=== PATIENT | female | born 1995 | race Caucasian/White ===

== ENCOUNTER 2018-10-15 16:37 | Emergency (ER) | payer OTHER ==
[~2018-10-15] VITALS: Ht 160 cm; Wt 55.6 kg
[2018-10-15 18:50] LABS: BASO # 0.1 10^3/uL (0.0-0.2); BASO % 0.6 % (0.0-1.0); EOS # 0.1 10^3/uL (0.0-0.50); EOS % 1.1 % (0.0-3.0); HEMATOCRIT 37.3 % (36.0-47.0); HEMOGLOBIN 12.6 g/dl (12.0-15.5); LYMPH # 3.7 10^3/uL (1.5-6.5); LYMPH % 37.3 % (24.0-44.0); MEAN CORPUSCULAR HEMOGLOBIN 31.9 pg (27.0-33.0); MEAN CORPUSCULAR HGB CONC 33.8 g/dl (32.0-36.5); MEAN CORPUSCULAR VOLUME 94.4 fl (80.0-96.0); MONO # 0.7 10^3/uL (0.0-0.8); MONO % 7.3 % (0.0-5.0); NEUTROPHILS # 5.3 10^3/uL (1.8-7.7); NEUTROPHILS % 53.4 % (36.0-66.0); PLATELET COUNT, AUTOMATED 368 10^3/uL (150-450); RED BLOOD COUNT 3.95 10^6/uL (4.00-5.40); WHITE BLOOD COUNT 9.9 10^3/uL (4.0-10.0)
[2018-10-15 19:36] LABS: BLOOD UREA NITROGEN 9 MG/DL (7-18); CALCIUM LEVEL 9.3 MG/DL (8.5-10.1); CARBON DIOXIDE LEVEL 26 MEQ/L (21-32); CHLORIDE LEVEL 107 MEQ/L (98-107); CREATININE FOR GFR 0.74 MG/DL (0.55-1.30); GLOMERULAR FILTRATION RATE > 60.0 (>60); GLUCOSE, FASTING 87 MG/DL (70-100); HCG, SERUM QUANTITATIVE 1950 MIU/ML; POTASSIUM SERUM 4.3 MEQ/L (3.5-5.1); SODIUM LEVEL 139 MEQ/L (136-145)
[2018-10-15] MEDS ORDERED: ACETAMINOPHEN TAB 650MG DOSE (2X325MG) PO ONE (20:30)
[2018-10-15 22:20] LABS: CHLAMYDIA DNA AMPLIFICATION NEGATIVE (NEGATIVE); GC DNA AMPLIFICATION NEGATIVE (NEGATIVE)
--- NOTE | 2018-10-15 22:55 | REPVR ---
EXAM: US First Trimester, Transabdominal EXAM DATE/TIME: 10/15/2018 9:42 PM CLINICAL HISTORY: 22 years old, female; Signs and symptoms; Lmp or gestational age (in weeks): Lmp 08/18/18; Antepartum complications; Bleeding; ; Additional info: Vag bleeding TECHNIQUE: Imaging protocol: Real-time transabdominal obstetrical ultrasound of the maternal pelvis and a first trimester , less than 14 weeks 0 days, with image documentation. COMPARISON: No relevant prior studies available. FINDINGS: Uterus measures 9.1 x 4.0 x 5.9 cm. Single intrauterine gestational sac is seen with mean diameter of 10.2 mm corresponding to 5 weeks 5 days of . No yolk sac is seen. No pole is identified. Right ovary measures 2.8 x 2.2 x 2.1 cm. Normal vascular flow is seen. Cyst in the right ovary measuring 2.0 x 1.0 x 1.3 cm. Left ovary measures 4.4 x 2.2 x 3.6 cm. Normal vascular flow is seen in the left ovary. Cyst is seen in the left ovary measuring 3.2 x 1.8 x 2.3 cm. Small amount of free fluid in the posterior cul-de-sac. IMPRESSION: Single intrauterine gestational sac is seen with mean diameter of 10.2 mm corresponding to 5 weeks 5 days of . No yolk sac is seen. No pole is identified. Findings may represent normal early versus blighted ovum, followup is recommended. Bilateral ovarian cysts. Small free fluid. Electronically signed by: Aleyda Antony On 10/15/2018 22:54:42 PM
[2018-10-15 23:16] VITALS: BP 122/68
== END 2018-10-15 23:17 | disposition home or self-care (01) ==
LOC: M ED 16:37
DX: O20.0 Threatened abortion (principal); O34.81 Maternal care for other abnormalities of pelvic organs, first trimester; Z3A.01 Less than 8 weeks gestation of pregnancy

== ENCOUNTER 2019-07-23 10:35 | Emergency (ER) | payer OTHER ==
[~2019-07-23] VITALS: Ht 162.6 cm; Wt 56.5 kg
[2019-07-23] MEDS ORDERED: MIRE1IUD IU (10:39)
[2019-07-23] MEDS ORDERED: ALBUTEROL SULFATE 2.5 MG/0.5 ML INH NEB SOLN NEB ONE (11:15)
--- NOTE | 2019-07-23 11:49 | REP ---
CHEST, TWO VIEWS: There is no evidence of acute infiltrate. No pleural effusion is seen. The heart is normal in size. The mediastinal silhouette is unremarkable. The visualized osseous structures are intact. IMPRESSION: No acute pulmonary disease. Electronically Signed by Yassine Almanzar MD 07/23/2019 05:36 P
[2019-07-23] MEDS ORDERED: VENTAER INH (12:03)
[2019-07-23 12:06] VITALS: BP 110/61
--- NOTE | 2019-07-23 18:22 | ECGEPIP ---
[facility] - ED Test Date: 2019-07-23 Pat Name: ELIZABETH MARQUIS Department: Room: - Gender: Female Manager Property: juvencio : 1995 Requested By: ANA ESPINAL PA-C. Order Number: [id number] Reading MD: Lakshmi Pappas Measurements Intervals [place] Rate: 70 P: 35 ND: 124 QRS: 83 QRSD: 89 T: 52 QT: 390 QTc: 421 Interpretive Statements SINUS RHYTHM WITH SINUS ARRHYTHMIA NO PRIOR Electronically Signed on 07-23-2019 18:22:36 EST by Lakshmi Pappas
== END 2019-07-23 12:13 | disposition home or self-care (01) ==
LOC: M ED 10:35
DX: R06.02 Shortness of breath (principal); J45.909 Unspecified asthma, uncomplicated; F41.9 Anxiety disorder, unspecified; Z97.5 Presence of (intrauterine) contraceptive device

== ENCOUNTER 2020-02-16 13:00 | Emergency (ER) | payer OTHER ==
[~2020-02-16 13:00] MED LIST: MIRE1IUD IU; VENTAER INH
== END 2020-02-16 14:00 | disposition home or self-care (01) ==
LOC: M ED 13:00
DX: Z11.59 Encounter for screening for other viral diseases (principal); R50.9 Fever, unspecified; F41.9 Anxiety disorder, unspecified

== ENCOUNTER 2021-03-02 17:54 | Outpatient (CLI) | payer OTHER ==
[~2021-03-02] VITALS: Ht 162.6 cm; Wt 77.7 kg
--- NOTE | 2021-03-02 19:46 | IPNPDOC ---
Obstetrical Progress Note Date of Service Mar 02, 2021 Subjective 25yo at 38w6d presents to triage for decreased movement. States she hasn't felt the baby move as much today and was concerned. She also noted occasional feeling of leaking - states it is a small amount of fluid that she noted on Sunday, and has been occurring intermittently since then. Denies any leaking today. She is s/p membrane sweep last week during her visit, and is also s/p intercourse multiple times in the past week. Denies any large gush of fluid or vaginal bleeding. +GFM shortly after being placed on monitor Objective [facility] BP 128/77 HR 93 Resp 16 Temp 97.8 Assessment Heart Rate (FHR): 130 Variability: Moderate Accelerations: Positive Decelerations: None Heart Rate Tracing: Category I Tocometer Contractions: Yes Frequency: irregular, every 3-7 min. Sterile Vaginal Examination Dilation: 2cm Effacement (%): 50% Station: -2 Cervical Consistency: Soft Cervical Position: Middle Postion/Presentation: Cephalic presentation (on US. MVP 4cm) Assessment and Plan Status: Reassuring Additional Comments 25yo at 38w6d presents to triage with decreased FM. NST reactive and pt reports improvement in activity since arriving. US performed with baby noted to be cephalic with normal fluid. MVP 4cm. Pt requesting cervical exam, SVE /-2. Pt states she has follow up visit scheduled for tomorrow. BEHZAD MADISON M.D. Mar 02, 2021 19:46
== END 2021-03-02 19:20 | disposition home or self-care (01) ==
LOC: M LDO 17:54
PROVIDERS: ATTEND Obstetrics & Gynecology
DX: O36.8130 Decreased fetal movements, third trimester, not applicable or unspecified (principal); Z3A.38 38 weeks gestation of pregnancy
CPT/HCPCS: 59025; 76815; G0378; G0463

== ENCOUNTER 2021-03-07 16:03 | Outpatient (CLI) | payer OTHER ==
[~2021-03-07] VITALS: Ht 162.6 cm; Wt 77.3 kg
[2021-03-07 16:16] VITALS: BP 137/85
[2021-03-07] MEDS ORDERED: PRENTAB9 PO (16:26)
== END 2021-03-07 17:22 | disposition home or self-care (01) ==
LOC: M LDO 16:03
PROVIDERS: ATTEND Advanced Practice Midwife
DX: O47.1 False labor at or after 37 completed weeks of gestation (principal); Z3A.39 39 weeks gestation of pregnancy
CPT/HCPCS: 59025; G0378; G0463

== ENCOUNTER 2021-03-11 03:44 | Inpatient (IN) | payer OTHER ==
[~2021-03-11] VITALS: Ht 162.6 cm; Wt 78.3 kg
[2021-03-11] VITALS (34 sets, daily range): BP systolic 101–142; BP diastolic 51–79
[~2021-03-11 03:44] MED LIST changes: +PRENTAB9 PO
[2021-03-11] MEDS ORDERED: METHYLERGONOVINE MALEATE 0.2 MG/ML VIAL (J2210) IM PRN (04:30)
[2021-03-11] MEDS ORDERED: OXYTOCIN DRIP 30 UNITS in IV 1 EA IV SCH (04:30)
[2021-03-11] MEDS: LR 1,000 ML IV SCH ×4 (04:30→12:22)
[2021-03-11] MEDS ORDERED: TRANEXAMIC ACID INJection 1,000 MG in NS 100 ML IV PRN (04:30)
[2021-03-11] MEDS ORDERED: OXYTOCIN INJ 10 UNITS/ML VIAL (J2590) IV PRN (04:30)
[2021-03-11] MEDS ORDERED: CARBOPROST TROMETHAMINE 250 MCG/ML AMP IM PRN (04:30)
[2021-03-11] MEDS ORDERED: LIDOCAINE 1% MDV 20ML VIAL INFIL PRN (04:30)
[2021-03-11] MEDS ORDERED: OXYTOCIN DRIP 30 UNITS in IV 1 EA IV PRN ×4 (04:30)
[2021-03-11] MEDS ORDERED: LR 1,000 ML IV SCH (04:30)
[2021-03-11 04:37] LABS: HEMATOCRIT 33.9 % (36.0-47.0); MEAN CORPUSCULAR HEMOGLOBIN 29.3 pg (27.0-33.0); MEAN CORPUSCULAR HGB CONC 32.4 g/dl (32.0-36.5); MEAN CORPUSCULAR VOLUME 90.2 fl (80.0-96.0); PLATELET COUNT, AUTOMATED 414 10^3/uL (150-450); RED BLOOD COUNT 3.76 10^6/uL (4.00-5.40); WHITE BLOOD COUNT 14.8 10^3/uL (4.0-10.0)
[2021-03-11 04:44] LABS: BASO % 0.3 % (0.0-1.0); EOS # 0.1 10^3/uL (0.0-0.5); EOS % 0.8 % (0.0-3.0); LYMPH # 2.9 10^3/uL (1.5-5.0); LYMPH % 19.9 % (24.0-44.0); MONO # 1.3 10^3/uL (0.0-0.8); MONO % 8.5 % (2.0-8.0); NEUTROPHILS # 10.3 10^3/uL (1.5-8.5); NEUTROPHILS % 69.8 % (36.0-66.0)
[2021-03-11] MEDS ORDERED: FENTANYL 2MCG/ML ROPIVACAINE 0.2% IN 0.9% NACL 100ML IVBAG As Ordered ONE ×2 (05:31→11:21)
[2021-03-11] MEDS ORDERED: EPIDURAL COMMENT XX SCH (05:55)
[2021-03-11] MEDS ORDERED: NALOXONE INJ 0.4MG/1ML VIAL (J2310 PER 1MG) IV PRN (05:55)
[2021-03-11] MEDS ORDERED: EPIDURAL/PCA KEYS XX PRN (05:55)
[2021-03-11] MEDS ORDERED: ePHEDrine SULFATE 25 MG/5 ML(5MG/ML) SYRINGE IV PRN (05:55)
[2021-03-11] MEDS ORDERED: diphenhydrAMINE 50MG/ML VIAL (J1200) IV PRN (05:55)
[2021-03-11] MEDS: FENTANYL/ROPIVACAINE/NACL BAG 100 ML EPIDURAL SCH ×2 (05:55→11:26)
[2021-03-11] MEDS ORDERED: ONDANSETRON 4MG/2ML VIAL IV PRN (05:55)
[2021-03-11] MEDS ORDERED: LACTATED RINGER'S 1000 ML IV PRN (05:55)
[2021-03-11] MEDS ORDERED: REFRIGERATOR IV KEYS XX PRN (05:55)
--- NOTE | 2021-03-11 05:55 | HPEPDOC ---
Obstetrical History & Physical General Date of Admission Mar 11, 2021 at 04:10 History of Present Illness The patient is a 24 yo @ 40w1d by LMP C/W 1T US who is admitted for labor at term. She denies any vaginal bleeding, abnormal vaginal discharge, leakage of fluids, urinary symptoms, or regular contractions. She denies any new headaches, visual abnormalities, chest pain, worsening dyspnea, facial swelling, or upper extremity swelling. At this time, she continues to report regular movement. Chief Complaint: Contractions, term Information Provided By: Patient Care Care: Good Care Dating Final EDC: Mar 10, 2021 Final EDC for Daily Update: Mar 10, 2021 Final EDC by: LMP LMP: May 25, 2020 Estimated Date of Confinement: Mar 10, 2021 EGA at Admission: 40 (40+1) Antepartum Course Diagnos(e)s 1. Excessive weight gain Height (inches): 64 Pre- weight (lbs.): 126 Admission Weight (lbs.): 173 Change in Weight (lbs.): 47 Past Medical History Past Obstetrical History : Past Obstetrical History: Primgravida [employer] History: No pertinent history Past Medical History Surgical History: Denies/None Family History Significant Family History: No pertinent family hx Social History Marital Status: Family situation: Spouse/partner home Psychosocial History: No pertinent psych hx * Smoker: non-smoker Alcohol: Denies Drugs: denies Abuse Violence Screening Have you been hit/kicked/slapp: No Have you been sexually assault: No Imunizations Tdap status: current Allergies Coded Allergies: No Known Allergies (Unverified , 03/07/21) Medications Scheduled No.137/Iron/Folic Acd ( Vitamin Tablet) 1 Each Tablet, 1 TAB PO DAILY Scheduled PRN Albuterol Sulfate (Ventolin Hfa) 18 Gm Hfa.aer.ad, 2 PUFF INH Q4-6HP PRN for wheezing Miscellaneous Medications Levonorgestrel (Mirena) 1 Each Iud, 20 MCG IU Physical Examination Physical Examination GENERAL: Alert and oriented times three. BREAST: . ABDOMEN: Gravid and non-tender to touch. FETUS: Is vertex (VTX) by sterile vaginal examination (SVE) HEART RATE: Regular rate and rhythm. LUNGS: normal work of breathing EXTREMITIES: No edema. Laboratory Data 24H LABS Laboratory Tests 2 9/3/21 04:23: Serology Scanned Report Hepatitis B Testing 03/11/21 04:30: Immature Granulocyte % (Auto) 0.7, Neutrophils (%) (Auto) 69.8H, Lymphocytes (%) (Auto) 19.9L, Monocytes (%) (Auto) 8.5H, Eosinophils (%) (Auto) 0.8, Basophils (%) (Auto) 0.3, Neutrophils # (Auto) 10.3H, Lymphocytes # (Auto) 2.9, Monocytes # (Auto) 1.3H, Eosinophils # (Auto) 0.1, Basophils # (Auto) 0.0, Immature Granulocyte # (Auto) 0.1H, Nucleated Red Blood Cells % (auto) 0.0, Platelet Estimate CBC/BMP Laboratory Tests 03/11/21 04:30 Urine Culture: No Growth, Urinary Tract Infection Pertinent Laboratoy Data Blood Type: A+ RBC Antibody Screen: Negative HIV: Negative Hepatitis B: Negative Rapid Plasma Reagin: Nonreactive Rubella: Nonreactive Varicella: Unknown Chlamydia/Gonorrhea: Negative Group B Streptococcus: Negative Quad Screen Test: Unknown Anatomy Ultrasound Normal Anatomy: Yes Steroid Therapy Steroid Therapy: No Vaginal Examination Dilation: 2cm Effacement: 50% Station: -3 Cervical Consistency: Soft Cervical Position: Posterior Presentation: Cephalic presentation Assessment Heart Rate (FHR): 150 Variability: Moderate Accelerations: Positive Decelerations: None Tocometer Contractions: Yes Frequency: regular Duration: greater than 60 seconds Strength: palpated as moderate Multi-drug resistant Organism: No history of MDRO Assessment/Plan Assessment Assessment: The patient is a 24 yo @ 40w1d by LMP C/W 1T US who is admitted for labor at term. Category I FHRT. APC: 1. Excessive weight gain SVE: 2-3/50/-3 GBS NEG Cephalic by Exam EFW 3700G RH POS Plan Plan: - Admit to L&D. - Consent signed and given to RN - CBC with type and screen. - EFM x2 - Anesthesia to see- wants epidural - Risks of augmentation with Pitocin discussed with patient. Labor and Delivery Counseling We will deliver your baby through the vagina with possible assistance of forceps or vacuum device if needed for maternal or indications. Forceps and vacuum are devices that can assist with vaginal delivery when normal pushing efforts cannot achieve delivery on their own or when delivery is needed in an emergency for baby's well-being. Medications may be required to induce or augment (help) your labor in order to achieve a vaginal delivery. An episiotomy may be required to help your baby to delivery vaginally. You may also require repair of any lacerations or tears of your vagina or vulva that are caused by delivery. In some cases, emergencies can occur that require an emergency section delivery so quickly that there may not be enough time to stop and complete consent forms for section. Understand that if this occurs, your prov iders will discuss the need for a section with you before they proceed with surgery. section is the delivery of your baby through an incision in your abdomen. In some situations, section may be safer to mom and baby than continuing labor and is only performed when clinically indicated. Risks of vaginal delivery include but are not limited to: Bleeding, infection, injury to the vagina, pelvic structures, injury to baby, damage to the uterus, reactions to anesthesia, uterine rupture, risk of hysterectomy for life threatening bleeding, or . Medications used to induce or augment labor may increase your risk for infection, uterine tachysystole, uterine rupture, heart rate abnormalities, need for emergency delivery or possible hysterectomy, and hemorrhage. Additional risks for use of forceps and vacuum include: increased risk of perineal and vaginal lacerations, risk of urinary or bowel incontinence, increased risk of injury to baby with bruising, scratches, hematomas on the head, or intracranial bleeding. HEBERT CHILDERS MD Mar 11, 2021 05:55
--- NOTE | 2021-03-11 08:04 | IPNPDOC ---
Obstetrical Progress Note Date of Service Mar 11, 2021 Assessment Variability: Moderate Accelerations: Positive Decelerations: None Heart Rate Tracing: Category I Tocometer Contractions: Yes Frequency: regular Sterile Vaginal Examination Dilation: 4 cm Effacement (%): 70% Station: -2 Assessment and Plan Additional Comments CAT I NST reactive. Regular contractions. Epidural in place, anesthesia currently assessing as patient still feels pain. SVE 4/75/-3. Per patient SROM at 0200, no bag felt, attempt to AROM without fluid return. Patient continues to make progress, will reassess in approx 2h and if not progressing start pitocin. JOHAN WINTER DO Mar 11, 2021 08:04
--- NOTE | 2021-03-11 10:00 | IPNPDOC ---
Obstetrical Progress Note Date of Service Mar 11, 2021 Objective Vital Signs Date Time Temp Pulse Resp B/P (MAP) Pulse Ox O2 Delivery O2 Flow Rate FiO2 03/11/21 08:07 105 120/76 (91) Assessment and Plan Additional Comments NST CAT I reactive. Contractions regular. SVE unchanged /75/-2 at 2h. Will start pitocin augmentation. JOHAN WINTER DO Mar 11, 2021 10:00
[2021-03-11] MEDS ORDERED: fentaNYL 100 MCG/2 ML INJECTION (J3010) As Ordered ONE (11:38)
--- NOTE | 2021-03-11 12:09 | IPNPDOC ---
Obstetrical Progress Note Date of Service Mar 11, 2021 Objective Vital Signs Date Time Temp Pulse Resp B/P (MAP) Pulse Ox O2 Delivery O2 Flow Rate FiO2 03/11/21 08:07 105 120/76 (91) Assessment and Plan Additional Comments To room for reassessment as notified by RN that cannot start pitocin without IUPC. SVE unchanged and IUPC placed. Currently contacting 3/10 min. NST CAT I reactive, intermittent small variable decels but mostly CAT 1. JOHAN WINTER DO Mar 11, 2021 12:09
[2021-03-11 16:49] LABS: CORD GAS ABE A -9.9; CORD GAS HCO3 A 18.4 MEQ/L; CORD GAS O2 SAT A 79.2 %; CORD GAS PCO2 A 48.6 mmHg; CORD GAS PH A 7.196 UNITS; CORD GAS PO2 A 42.2 mmHg; CORD GAS SBC A 16.4 MEQ/L; CORD GAS TCO2 A 19.9 MEQ/L
[2021-03-11 16:50] LABS: CORD GAS ABE V -6.3; CORD GAS HCO3 V 18.5 MEQ/L; CORD GAS O2 SAT V 87.2 %; CORD GAS PCO2 V 35.5 mmHg; CORD GAS PH V 7.335 UNITS; CORD GAS PO2 V 43.4 mmHg; CORD GAS SBC V 19.2 MEQ/L; CORD GAS TCO2 V 19.6 MEQ/L
[2021-03-11] MEDS ORDERED: ACETAMINOPHEN TAB 650MG DOSE (2X325MG) PO PRN (17:05)
[2021-03-11] MEDS ORDERED: IBUPROFEN 600MG TAB PO PRN (17:05)
[2021-03-11] MEDS ORDERED: ACETAMINOPHEN 500 MG TAB PO PRN (17:05)
--- NOTE | 2021-03-11 17:13 | DNPDOC ---
[facility] Delivery Note Delivery Note DATE OF DELIVERY: 03/11/21 PREDELIVERY DIAGNOSIS: 40+1/7 weeks' gestation and labor. Augmentation of labor. POST DELIVERY DIAGNOSIS: Delivered. First degree perineal laceration. Right labial laceration. PROCEDURE: Vaginal delivery. Manual rotation. Repair of right labial laceration. Repair of first degree perineal laceration. SPANNER OPERATOR: Dr. Yoan Winter ANESTHESIA: epidural ESTIMATED BLOOD LOSS: 150 mL. FINDINGS: 3790g , Score 8/9, bandlieer cord, 30s shoulder dystocia DELIVERY SUMMARY: Ms. Lawson is a 24yo at 40+1 who presented in early labor with rupture and was augmented with pitocin. She progressed to C/C/+2 and was noted to be straight OP. Manual rotation was attempted and resulted in LOP position. During further pushing the baby spontaneously rotated to GALLITO. The head delivered and the anterior shoulder would not deliver with gentle downward traction. Kim and suprapubic pressure were performed and the shoulder delivered. The dystocia lasted 30 seconds. The baby had spontaneous movement and cry. The cord was clamped x2 and cut. Cord blood and gasses were obtained. The placenta was delivered with gentle downward traction and was inspected to be in-tact. The uterus was firm and bleeding scant with bimanual massage and pitocin. A right labia perineal laceration was repaired with 3-0 vicryl rapid. A first degree laceration was repaired with 2-0 vicryl and a split in the perineal skin repaired with 3-0 monocryl. The bleeding remained scant. The sponge, lap, and needle counts were correct. YOAN WINTER DO Mar 11, 2021 17:13
[2021-03-11] MEDS: DOCUSATE SODIUM 100MG CAPSULE PO PRN (19:16)
[2021-03-11] MEDS: IBUPROFEN 800 MG TAB PO PRN (19:16)
[2021-03-12] MEDS: LR 1,000 ML IV SCH (04:30)
[2021-03-12 06:00] VITALS: BP 111/58
--- NOTE | 2021-03-12 07:27 | IPNPDOC ---
Progress Note Date of Service: Mar 12, 2021 Progress Note SUBJECT: Ms. Lawson is a 24yo PPD1 s/p vaginal delivery after augmentation of labor after spontaneous rupture of membranes. She has been ambulating, voiding spontaneously without issue and tolerating regular diet. Breast feeding without issue. Reports lochia is less than a normal period]. Patient is ambulating well. Reports some cramping with . Denies any pain. Voiding and passing flatus without difficulty. OBJECTIVE: VITAL SIGNS: Within normal limits, afebrile. Alert and oriented times three. No increased WOB. Heart rate: Non-tachycardic. Abdomen: Fundus firm at U-2. Soft, NTTP. [Minimal] lochia per patient. ASSESSMENT: Ms. Lawson is a 24yo PPD1 s/p vaginal delivery after augmentation of labor after spontaneous rupture of membranes. Vitals within normal limits, afebrile, hemodynamically stable with no evidence of infection. PLAN: 1. Discharge to home likely tomorrow. 2. Tylenol and Motrin for pain. 3. Encourage breast feeding and ambulation. 4. Desires minipill for contraception. 5. Routine visit in 6 weeks in clinic. 6. Discussed return precautions at length and activity limitations (pelvic rest). VS, I&O, 24H, [place] Vital Signs/I&O Vital Signs Date Time Temp Pulse Resp B/P (MAP) Pulse Ox O2 Delivery O2 Flow Rate FiO2 03/12/21 06:00 97.2 80 16 111/58 (75) 97 Room Air I&O- Last 24 Hours up to 6 AM 03/12/21 06:00 Intake Total 400 ml Output Total 1550 ml Balance -1150 ml Laboratory Data 24H LABS Laboratory Tests 2 03/11/21 16:37: Cord Arterial Blood pH 7.196, Cord Arterial Blood PCO2 48.6, Cord Arterial Blood PO2 42.2, Cord Arterial Blood HCO3 18.4, Cord Arterial Blood Total CO2 19.9, Cord Arterial Blood Base Excess -9.9, Cord Arterial Base Excess (Standard 16.4, Cord Arterial Bld Oxygen Saturation 79.2, Cord Venous Blood pH 7.335, Cord Venous Blood PCO2 35.5, Cord Venous Blood PO2 43.4, Cord Venous Blood HCO3 18.5, Cord Venous Blood Total CO2 19.6, Cord Venous Base Excess (Actual) -6.3, Cord Venous Base Excess (Standard) 19.2, Cord Venous Blood Oxygen Saturation 87.2 JOHAN WINTER DO Mar 12, 2021 07:27
--- NOTE | 2021-03-12 07:29 | OBDS ---
[facility] Obstetrical Discharge Sum. A/P, Post Course List any complications SUBJECT: Ms. Lawson is a 24yo who had a vaginal delivery after augmentation of labor after spontaneous rupture of membranes. She had a right labial and first degree perineal laceration. Her delivery was complicated by a 30 second shoulder dystocia. 3790g infant, Score 8/9, EBL 150. She has been ambulating, voiding spontaneously without issue and tolerating regular diet. Breast feeding without issue. Reports lochia is less than a normal period. Patient is ambulating well. Reports some cramping with . Denies any pain. Voiding and passing flatus without difficulty. Vitals within normal limits, afebrile, hemodynamically stable with no evidence of infection. PLAN: 1. Discharge to home. 2. Tylenol and Motrin for pain. 3. Encouraged breast feeding and ambulation. 4. Desires minipill for contraception. 5. Routine visit in 6 weeks in clinic. 6. Discussed return precautions at length and activity limitations (pelvic rest). JOHAN WINTER DO Mar 12, 2021 07:29
[2021-03-12] MEDS: PRENATAL VITAMINS CHEWABLE TABLET PO SCH (08:23)
[2021-03-12] MEDS: IBUPROFEN 800 MG TAB PO PRN (14:19)
[2021-03-12] MEDS: DOCUSATE SODIUM 100MG CAPSULE PO PRN (15:18)
[2021-03-12 17:52] VITALS: BP 120/64
--- NOTE | 2021-03-12 18:39 | IPN ---
PROGRESS NOTE DATE: 03/12/2021 SUBJECTIVE: This patient requested circumcision of her male infant. After discussing risks and benefits of circumcision, the medical and nonmedical indications, the penile block and aftercare, expressed understanding of penile block, aftercare and bleeding, signed the consent form. All questions were answered, 20 minute discussion. We await clearance by the molten iron pourer.
[2021-03-13 06:00] VITALS: BP 123/76
[2021-03-13] MEDS ORDERED: IBUP-1022 PO (08:18)
[2021-03-13] MEDS ORDERED: COLA100C5 PO (08:18)
[2021-03-13] MEDS: PRENATAL VITAMINS CHEWABLE TABLET PO SCH (08:30)
--- NOTE | 2021-03-13 12:30 | DSES ---
DISCHARGE SUMMARY DATE OF ADMISSION: 03/11/2021 DATE OF DISCHARGE: 03/13/2021 BRIEF HISTORY: : This lady is a25 -year-old 2, now para 1, was admitted at 40 and 1 weeks gestation in labor, epidural in place, spontaneous vaginal delivery, male , 8 pounds 6 ounces, 3790 grams, scores of 8 and 9 at one and five minutes respectively. She sustained a first degree tear, which was repaired in the usual fashion. She had a 30 second shoulder dystocia, which was managed. On her discharge, her hemoglobin was 11.0, hematocrit 33.9 and platelets were 414. PHYSICAL EXAMINATION: VITAL SIGNS ON DISCHARGE: Blood pressure 123/76, respirations 16, pulse 70, temperature 98.2. We discussed phlebitis, cystitis, mastitis, endometritis, cellulitis, diet, exercise, pain management, perineal, breast and wound care. The rest of the examination is unremarkable. HEENT: Normocephalic, atraumatic. Neck full range of motion. Pupils equal and reactive to light. Distal pulses are symmetric. No evidence of deep venous thrombosis (DVT), pulmonary embolism (PE) or superficial phlebitis. CHEST: Clear bilaterally to bases. No wheezes or rhonchi. No costovertebral angle (CVA) tenderness. ABDOMEN: Soft. Four quadrant bowel sounds are noted. GENITOURINARY: Uterus is 2 below, lochia is moderate. No rashes, lesions or pruritus. No arthralgias or myalgias. No complaint of joint pain. No complaint of cough, wheeze, shortness of breath or dyspnea on exertion. No nausea, vomiting, diarrhea or constipation. No urgency or frequency. In summary, we have a term gestation, delivered a live male . Plans are for picking up her medications at [place], six week check at [facility], at which time control will be dispensed. Patient tolerated the procedure well.
== END 2021-03-13 12:25 | disposition home or self-care (01) | DRG 807 ==
LOC: M LDO 03:44 → M LDI 04:10 → M OBS 18:24
PROVIDERS: ADMIT Obstetrics & Gynecology; ATTEND Obstetrics & Gynecology
PROC: 10E0XZZ Delivery of Products of Conception, External Approach (ICD-10-PCS; principal; 2021-03-11)
PROC: 0HQ9XZZ Repair Perineum Skin, External Approach (ICD-10-PCS; 2021-03-11)
DX: O48.0 Post-term pregnancy (principal); Z37.0 Single live birth; Z3A.40 40 weeks gestation of pregnancy; O26.03 Excessive weight gain in pregnancy, third trimester; O70.0 First degree perineal laceration during delivery; O66.0 Obstructed labor due to shoulder dystocia